=== PATIENT | male | born 1960 | race Two or more races ===

== ENCOUNTER → 2020-03-05 | Outpatient (CLI) | payer MEDICARE, OTHER ==
--- NOTE | 2020-03-05 16:50 | Diagnostic Imaging Report ---
Indication: Lumbar spine pain Technique: Sagittal T1 and T2 fast spin echo, sagittal STIR, axial T1 and T2 fast spin-echo images of the lumbar spine Comparison: none Findings: Bone marrow signal is slightly heterogeneous, most likely representing Modic type II fatty degenerative changes as well as heterogeneous fatty marrow conversion. The former is most striking surrounding the L5-S1 disc. The vertebral marrow signal is otherwise unremarkable. Vertebral body heights are preserved. The bony alignment is normal. The conus medullaris terminates at the L1-2 level. At L2-3, mild circumferential annular bulge results in borderline narrowing of the spinal canal. The neural foramina are preserved. At L3-4, there is circumferential annular bulge as well as broad-based central and left paracentral posterior disc protrusion. This results in moderate narrowing of the spinal canal, narrowing it to a minimum of 7 mm AP diameter. This may also impinge upon the left lateral recess. The bulging disc results in mild compromise of the bilateral neural foramina. The disc space is preserved. At L4-5, there is mild degenerative disc narrowing. There is generalized circumferential annular bulge as well as broad-based posterior disc protrusion with a high intensity zone. This does not significant narrow the spinal canal although may slightly compromised bilateral lateral recesses. There is also mild compromise of the bilateral neural foramina, particular the right. At L5-S1, there is moderate to severe degenerative disc narrowing. There is circumferential annular bulge as well as broad-based central posterior disc protrusion this does not result in any significant compromise the spinal canal. There is mild bilateral neural foraminal stenosis resulting from the bulging disc. Impression: Multilevel degenerative changes, as detailed on a level by level basis above, with spinal canal stenosis at L3-4 which may be significant.
--- NOTE | 2020-03-05 17:45 | Diagnostic Imaging Report ---
Indication: Cervical spine pain Technique: Sagittal T1 FLAIR PROPELLER, sagittal T2 PROPELLOR, sagittal STIR, axial T2 PROPELLER, axial 3D COSMIC ASPIR images were obtained through the cervical spine Comparison: none Findings: Bony alignment is normal. Vertebral body heights are preserved. Vertebral marrow signal is preserved. Intrinsic cord signal is normal. Facet hypertrophy results in moderate neural foraminal stenosis at C3-4 bilaterally. No significant disc bulge or protrusion or spinal canal stenosis. Facet arthrosis results in moderate bilateral neural foraminal stenosis at C4-5 bilaterally. No significant disc bulge or protrusion or spinal stenosis. At C5-6, there is circumferential annular bulge. This results in borderline narrowing of the spinal canal. No significant cord impingement. There is severe bilateral neural foraminal stenosis due to uncinate hypertrophy. There is mild degenerative disc narrowing. At C6-7, there is mild degenerative disc narrowing. There is posterior disc bulge/osteophyte complex which results in borderline narrowing of the spinal canal. There is moderate to severe right, severe left neural foraminal stenosis. At the remaining disc levels, no significant disc bulge or protrusion, spinal stenosis, or neural foraminal stenosis. The included extraspinal soft tissues are unremarkable. Impression: No acute process Multilevel degenerative changes, as detailed on a level by level basis above
== END | disposition home or self-care (01) ==
LOC: MRI 07:42
DX: M54.5 Low back pain (principal); M51.27 Other intervertebral disc displacement, lumbosacral region; M51.26 Other intervertebral disc displacement, lumbar region; M54.2 Cervicalgia; M48.02 Spinal stenosis, cervical region
CPT/HCPCS: 72141; 72148